=== PATIENT | male | born 1950 ===

== ENCOUNTER 2024-02-22 09:48 | Outpatient (RCR) | payer OTHER, SELFPAY ==
--- NOTE | 2024-02-08 11:00 | RT.EKG_ITS ---
APPROVED REPORT Exam: Resting ECG Reason for Exam: CR Intake Patient Patient Location: O HR:81 bpm ECG Measurements Heart Rate 81 AXIS AK 203 P 77 QRSd 120 QRS 4 QT 392 T -14 QTc 455 Conclusion Sinus rhythm...normal P axis, V-rate 50- 99 Ventricular premature complex...V complex w/ short R-R interval IVCD, consider atypical RBBB...QRSd>120mS, terminal axis(90,270) Inferior infarct, age indeterminate...Q>35mS, T neg, II III aVF
--- NOTE | 2024-02-17 10:15 | RT.EKG_ITS ---
APPROVED REPORT Exam: Resting ECG Reason for Exam: Question V-Tach? Patient Location: O HR:75 bpm ECG Measurements Heart Rate 75 AXIS DC 213 P -24 QRSd 110 QRS -18 QT 421 T -7 QTc 471 Conclusion Sinus rhythm...normal P axis, V-rate 50- 99 Borderline prolonged DC interval...DC >212, V-rate 50- 90 >280 Inferior infarct, old...Q >35mS, II III aVF Partial missing lead(s): V3,V4
--- NOTE | 2024-02-17 11:11 | NUR.NOTE ---
Nursing Note: Surgical Technologist: Dr. Graham Supervising RN: Kellie Castro, RN;Therese, RN Exercise Session Notes: Pt. presented for CR session this morning. Pt. denied any chest pain/pressure, SOB, pain, etc. Patient noted to have a 10 second run of ?aberrant rhythm vs. Vtach. Patient was seated during the entire event and denied all symptoms. EKG preformed post event viewed by Dr. Graham. ? run of vtach vs. aberrancy rhythm strip viewed by Dr. Graham as well. Dr. Redmond notified and rhythm strips and updated EKG from post arrhythmia faxed to his office per Dr. Graham. Pt. completed exercises and tolerated exercise session well. Pt. left ambulatory in no apparent distress. 3 lead Telemetry: SR w/ a first degree AV block w/ a rare PVC.
== END 2024-02-25 23:59 | disposition home or self-care (01) ==
LOC: CR 09:48
PROVIDERS: Visit Provider Internal Medicine Cardiovascular Disease
DX: I21.3 ST elevation (STEMI) myocardial infarction of unspecified site (principal); Z51.89 Encounter for other specified aftercare
CPT/HCPCS: S9472

== ENCOUNTER 2024-03-26 09:37 | Outpatient (RCR) | payer OTHER, SELFPAY | END 2024-03-27 23:59 | disposition home or self-care (01) | LOC: CR 09:37 | PROVIDERS: Visit Provider Internal Medicine Cardiovascular Disease | DX: I21.09 ST elevation (STEMI) myocardial infarction involving other coronary artery of anterior wall (principal); Z95.5 Presence of coronary angioplasty implant and graft; Z51.89 Encounter for other specified aftercare | CPT/HCPCS: S9472 ==

== ENCOUNTER 2024-04-27 10:26 | Outpatient (RCR) | payer OTHER, SELFPAY | END 2024-04-27 23:59 | disposition home or self-care (01) | LOC: CR 10:26 | PROVIDERS: Visit Provider Internal Medicine Cardiovascular Disease | DX: Z51.89 Encounter for other specified aftercare; I21.4 Non-ST elevation (NSTEMI) myocardial infarction | CPT/HCPCS: S9472 ==

== ENCOUNTER 2024-05-23 09:42 | Outpatient (RCR) | payer OTHER, SELFPAY | END 2024-05-25 23:59 | disposition home or self-care (01) | LOC: CR 09:42 | PROVIDERS: Visit Provider Internal Medicine Cardiovascular Disease | DX: I21.4 Non-ST elevation (NSTEMI) myocardial infarction (principal); Z95.5 Presence of coronary angioplasty implant and graft; Z51.89 Encounter for other specified aftercare | CPT/HCPCS: S9472 ==

== ENCOUNTER 2024-06-25 10:08 | Outpatient (RCR) | payer OTHER, SELFPAY | END 2024-06-25 23:59 | disposition home or self-care (01) | LOC: CR 10:08 | PROVIDERS: Visit Provider Internal Medicine Cardiovascular Disease | DX: I21.4 Non-ST elevation (NSTEMI) myocardial infarction (principal); Z95.5 Presence of coronary angioplasty implant and graft; Z51.89 Encounter for other specified aftercare | CPT/HCPCS: S9472 ==

== ENCOUNTER 2024-06-29 09:59 | Outpatient (RCR) | payer OTHER, SELFPAY | END 2024-07-25 23:59 | disposition home or self-care (01) | LOC: CR 09:59 | PROVIDERS: Visit Provider Internal Medicine Cardiovascular Disease | DX: I21.4 Non-ST elevation (NSTEMI) myocardial infarction (principal); Z95.5 Presence of coronary angioplasty implant and graft; Z51.89 Encounter for other specified aftercare | CPT/HCPCS: S9472 ==